=== PATIENT | female | born 1995 | race Caucasian/White ===

== ENCOUNTER 2016-09-17 01:00 | Outpatient (CLI) | payer OTHER | END 2016-09-17 02:27 | disposition home or self-care (01) | LOC: GENOP 01:00 | DX: O47.1 False labor at or after 37 completed weeks of gestation (principal); Z3A.38 38 weeks gestation of pregnancy | CPT/HCPCS: G0463 ==

== ENCOUNTER 2016-09-20 16:25 | Inpatient (IN) | payer OTHER ==
[2016-09-20 16:59] LABS: HEMOGLOBIN 10.1 gm/dl (12.3-15.3); WHITE BLOOD COUNT 9.7 K/UL (4.5-11.0)
[2016-09-22 03:05] LABS: HEMOGLOBIN 8.7 gm/dl (12.3-15.3)
== END 2016-09-23 12:17 | disposition home or self-care (01) | DRG 775 ==
LOC: GENOP 16:25 → OB 16:44
PROVIDERS: ADMIT Obstetrics & Gynecology
DX: O99.214 Obesity complicating childbirth (principal); O99.02 Anemia complicating childbirth; D64.9 Anemia, unspecified; Z3A.38 38 weeks gestation of pregnancy; Z37.0 Single live birth; O70.0 First degree perineal laceration during delivery; Z23 Encounter for immunization; Z87.440 Personal history of urinary (tract) infections; Z88.8 Allergy status to other drugs, medicaments and biological substances; Z82.49 Family history of ischemic heart disease and other diseases of the circulatory system; Z82.5 Family history of asthma and other chronic lower respiratory diseases; Z80.9 Family history of malignant neoplasm, unspecified
CPT/HCPCS: 36415; 51702; 81001; 82800; 85014; 85018; 85025; 90707; 90715; G0463; J2405; J2590; J2795; J3010; J7120; Q0162

== ENCOUNTER 2016-12-25 16:51 | Emergency (ER) | payer OTHER ==
[2016-12-25 18:30] LABS: RED BLOOD COUNT 4.35 M/UL (4.00-5.10); WHITE BLOOD COUNT 10.9 K/UL (4.5-11.0)
[2016-12-25 18:48] LABS: BUN/CREATININE RATIO 19 (0-10)
== END 2016-12-25 21:22 | disposition home or self-care (01) ==
LOC: ER1 16:51
PROVIDERS: Emergency Medicine
DX: R10.11 Right upper quadrant pain (principal); R11.0 Nausea; R19.7 Diarrhea, unspecified; Z88.8 Allergy status to other drugs, medicaments and biological substances
CPT/HCPCS: 36415; 71010; 76705; 80053; 81001; 82150; 82550; 82553; 83690; 83874; 84484; 84703; 85025; 96360; 96361; 99284

== ENCOUNTER 2021-03-23 17:36 | Emergency (ER) | payer OTHER ==
[~2021-03-23 17:36] MED LIST: FERROUS SULFAT325 M2 PO; PEPCID20 MG PO; PHENERGAN 12.12.5 M1 PO; PHENERGAN 25 MG25 M1 PO; TYLENOL 500 MG500 MG PO; ZANTAC150 MG PO
[2021-03-23 20:30] LABS: HEMOGLOBIN 12.8 gm/dl (12.3-15.3); RED BLOOD COUNT 4.58 M/UL (4.00-5.10); WHITE BLOOD COUNT 13.5 K/UL (4.5-11.0)
[2021-03-23 20:48] LABS: BUN/CREATININE RATIO 19 (0-10)
== END 2021-03-23 20:27 | disposition left against medical advice (07) ==
LOC: ER1 17:36
PROVIDERS: Family Medicine
DX: R10.9 Unspecified abdominal pain (principal); F17.200 Nicotine dependence, unspecified, uncomplicated; Z87.442 Personal history of urinary calculi; Z88.8 Allergy status to other drugs, medicaments and biological substances
CPT/HCPCS: 80053; 81001; 83690; 84703; 85025; 99284; Q9967